=== PATIENT | male | born 1980 | race Two or more races ===

== ENCOUNTER 2018-12-28 20:26 | Emergency (ER) | payer OTHER ==
[~2018-12-28] VITALS: Ht 160 cm; Wt 65.8 kg
[~2018-12-28 20:26] MED LIST: FLEXERIL10 MG PO; KETOROLAC TROME10 MG PO; NAPR500T14 PO; ORPHENADRINE C100 MG PO
== END 2018-12-28 21:11 | disposition home or self-care (01) ==
LOC: ER 20:26
DX: I16.0 Hypertensive urgency (principal); I10 Essential (primary) hypertension